=== PATIENT | female | born 1950 | race Caucasian/White ===

== ENCOUNTER → 2024-07-01 12:53 | Outpatient (REF) | payer MEDICARE, OTHER, SELFPAY | LOC: HWRAD 12:53 | PROVIDERS: ATTENDING PHYSICIAN Internal Medicine; REFERRING PHYSICIAN Orthopaedic Surgery Adult Reconstructive Orthopaedic Surgery | DX: M25.552 Pain in left hip (principal); M25.562 Pain in left knee | CPT/HCPCS: 73502; 73564 ==

== ENCOUNTER → 2024-07-28 18:31 | Outpatient (REF) | payer MEDICARE, OTHER, SELFPAY | LOC: WDC 18:31 | PROVIDERS: ATTENDING PHYSICIAN Obstetrics & Gynecology Gynecology; FAMILY PHYSICIAN Internal Medicine | DX: Z12.31 Encounter for screening mammogram for malignant neoplasm of breast (principal) | CPT/HCPCS: 77063; 77067 ==

== ENCOUNTER → 2025-07-29 15:35 | Outpatient (REF) | payer MEDICARE, OTHER, SELFPAY | LOC: WDC 15:35 | PROVIDERS: ATTENDING PHYSICIAN Internal Medicine | DX: Z12.31 Encounter for screening mammogram for malignant neoplasm of breast (principal) | CPT/HCPCS: 77063; 77067 ==

== ENCOUNTER → 2025-08-06 13:32 | Outpatient (REF) | payer MEDICARE, OTHER, SELFPAY | LOC: HWRCS 13:32 | PROVIDERS: ATTENDING PHYSICIAN Internal Medicine | DX: R01.1 Cardiac murmur, unspecified (principal) | CPT/HCPCS: 93306 ==